=== PATIENT | male | born 1945 | race Caucasian/White ===

== ENCOUNTER 2020-07-08 09:55 | Outpatient (CLI) | payer MEDICARE, OTHER, SELFPAY | END 2020-07-08 10:15 | PROVIDERS: Visit Provider Internal Medicine Interventional Cardiology | DX: R69 Illness, unspecified (principal) ==

== ENCOUNTER 2020-07-09 04:48 | Outpatient (CLI) | payer MEDICARE, OTHER, SELFPAY ==
--- NOTE | 2020-07-29 08:40 | W.ZIOMONITOR ---
Date of service: 07/29/20 Time of Service: 08:40 [employer] Referring Provider:: Franklin Napoles MD Indications:: atrial fibrillation Note: The patient was monitored for a period of 13 days and 21 hours. Predominant rhythm was sinus. Average heart rate was 59. Minimum heart rate was 50 and maximum 115 There were rare atrial and ventricular ectopic beats. There were a total of 4 atrial runs, the longest of which was 15 beats at a rate from 96-1 10 There was no atrial fibrillation There were no pauses There was no AV block
== END 2020-07-09 05:08 ==
PROVIDERS: PCP Internal Medicine; Visit Provider Internal Medicine Interventional Cardiology
DX: I48.91 Unspecified atrial fibrillation (principal); I49.8 Other specified cardiac arrhythmias
CPT/HCPCS: 0296T

== ENCOUNTER 2020-07-29 08:40 | Outpatient (CLI) | payer MEDICARE, OTHER, SELFPAY | END 2020-07-29 09:00 | PROVIDERS: PCP Internal Medicine; Referring Provider Internal Medicine Interventional Cardiology; Visit Provider Internal Medicine Cardiovascular Disease | DX: I48.91 Unspecified atrial fibrillation (principal); I49.8 Other specified cardiac arrhythmias | CPT/HCPCS: 0298T ==